=== PATIENT | male | born 1945 | race Caucasian/White ===

== ENCOUNTER 2017-10-28 16:13 | Emergency (ER) | payer OTHER, MEDICARE ==
[2017-10-28] MEDS ORDERED: ASPIRIN 81 MG CHEWABLE TAB PO ONE (17:16)
--- NOTE | 2017-10-28 17:16 | CPEKG ---
Heart Rate: 85 RR Interval: 706 P-R Interval: 164 QRSD Interval: 84 QT Interval: 340 QTC Interval: 405 P [place]ar: 17 QRS [place]ivar: -22 T Wave Bolivar: 17 EKG Severity - OTHERWISE NORMAL ECG - EKG Impression: SINUS RHYTHM EKG Impression: BORDERLINE LEFT AXIS DEVIATION EKG Impression: Otherwise normal EKG Electronically Signed By: Raghavendra Catherine 30-Oct-2017 08:44:08
[2017-10-28 17:55] LABS: PLATELET COUNT 169 10^3/uL (150-400)
[2017-10-28 17:58] LABS: INR 1.21 (0.83-1.16)
[2017-10-28 18:42] VITALS: BP 144/94
--- NOTE | 2017-10-28 18:56 | EDPHY ---
H & P Time Seen by Provider: 10/28/17 16:53 HPI/ROS: CHIEF COMPLAINT: Right shoulder pain HISTORY OF PRESENT ILLNESS: Patient states he has been a little bit ill since . He states"I thought I had a cold". He felt some subtle cough and congestion. Also indigestion increased gassiness. Since that time he changes diet which helped with the indigestion sensation. He also increases fluids which helped his constipation. He states Sunday he noticed right shoulder pain which he describes as severe and generalized to the shoulder. He tried heating pads which made it worse. He also felt a little feverish but had no documented elevated temperature. He states the shortness of breath is the same since and seems worse with activity. Also around the time of onset of the symptoms he had some dizziness that lasted for 2-3 weeks but is better now. Denies chest pain other than when he coughs it hurts a little bit. He has had some sweatiness. He denies nausea or vomiting. He denies abdominal pain. REVIEW OF SYSTEMS: Constitutional: No fever, no chills. Eyes: No discharge. ENT: No sore throat. Cardiovascular: No chest pain, no palpitations. Respiratory: Per HPI Gastrointestinal: No abdominal pain, no vomiting. Genitourinary: No dysuria. Musculoskeletal: No back pain. Right shoulder pain. Skin: No rashes. Neurological: No headache. General Appearance: Alert, no distress. Eyes: Pupils equal and round no pallor or injection. ENT, Mouth: Mucous membranes moist. Respiratory: There are no retractions, lungs are clear to auscultation. Cardiovascular: Regular rate and rhythm. No edema. Gastrointestinal: Abdomen is soft and nontender, no masses, bowel sounds normal. Neurological: Awake and alert, normal distal strength sensation and movement all 4 extremities. Skin: Warm and dry, no rashes. Musculoskeletal: Neck is supple nontender. Some general tenderness to palpation to the right shoulder. No skin lesions noted. Distal intact. Extremities are symmetrical, full range of motion, no edema. Psychiatric: Patient is oriented X 3, there is no agitation. Medical/surgical history: Neuroendocrine tumor of the colon. Hypertension. History of DVT, PE. Treated with anticoagulation no longer on anticoagulation. Prostate issues, kidney stone, surgeries for colon cancer, cataracts, retinal detachment. Social history: Nonsmoker, no drugs. Smoking Status: Never smoked Constitutional: Initial Vital Signs Temperature (C) 37.1 C 10/28/17 16:24 Heart Rate 88 10/28/17 16:24 Respiratory Rate 16 10/28/17 16:24 Blood Pressure 167/90 H 10/28/17 16:24 O2 Sat (%) 96 10/28/17 16:24 O2 Delivery Mode Room Air Allergies/Adverse Reactions: No Known Allergies Allergy (Verified 10/28/17 16:21) Home Medications: Medication Instructions Recorded Allopurinol [Allopurinol 300 MG 300 mg PO DAILY 12/29/12 (RX)] Aspirin [Aspirin 81mg (OTC)] 81 mg PO DAILY 12/29/12 Atrovastatin 40mg 12/29/12 FENOFIBRATE 160 mg PO 12/29/12 Finasteride 5 mg PO 12/29/12 Losartan Potassium [Cozaar] 100 mg PO 12/29/12 Tamsulosin HCl [Flomax 0.4 MG (RX)] 0.4 mg PO DAILY8 12/29/12 FOLIC ACID 10/28/17 Fish Oil 1,000 mg Softgel 10/28/17 Medical Decision Making - Diagnostics Imaging Results: Imaging Impressions Chest X-Ray 10/28/17 17:18 Impression: Query airways disease with no acute cardiopulmonary abnormality identified. Imaging: I viewed and interpreted images myself ED Course/Re-evaluation: EKG performed for shortness of breath. EKG shows normal sinus rhythm, normal intervals, normal rate. Borderline left axis deviation. No acute ST T wave changes. Impression borderline left axis deviation otherwise normal EKG. See trace master. Differential Diagnosis: Differential diagnosis includes but is not limited to acute coronary syndrome, pulmonary embolism, pneumonia, congestive heart failure, musculoskeletal shoulder pain. After evaluation no evidence of cardiopulmonary cause of his symptoms. Likely mild upper respiratory infection or early COPD but no hypoxia , wheezes, infiltrates or elevated D-dimer to suggest pulmonary embolism. EKG and troponin within normal limits. Suspect shoulder pain is musculoskeletal in origin and recommended close follow-up with Dr. Chavarria this week. Also suggested follow-up with orthopedist after seeing Dr. Chavarria if indicated. Discussed return precautions in detail. Stable for discharge. - Data Points Laboratory Results: Laboratory Results 10/28/17 17:32 10/28/17 17:32 10/28/17 10/28/17 10/28/17 17:40 17:38 17:32 WBC RBC Hgb POC Hgb 14.6 gm/dL gm/dL (13.7-17.5) Hct POC Hct 43 % % (40-51) MCV MCH MCHC RDW Plt Count MPV Neut % (Auto) Lymph % (Auto) Reynolds % (Auto) Eos % (Auto) Baso % (Auto) Nucleat RBC Rel Count Absolute Neuts (auto) Absolute Lymphs (auto) Absolute Monos (auto) Absolute Eos (auto) Absolute Basos (auto) Absolute Nucleated RBC Immature Gran % Immature Gran # PT INR APTT D-Dimer POC Sodium 138 mEq/L mEq/L (135-145) Sodium 138 mEq/L mEq/L (135-145) POC Potassium 4.0 mEq/L mEq/L (3.3-5.0) Potassium 4.1 mEq/L mEq/L (3.3-5.0) POC Chloride 105 mEq/L mEq/L (97-110) Chloride 106 mEq/L mEq/L (97-110) Carbon Dioxide 20 mEq/l L mEq/l (22-31) Anion Gap 12 mEq/L mEq/L (8-16) POC BUN 21 mg/dL mg/dL (7-23) BUN 19 mg/dL mg/dL (7-23) Creatinine 1.0 mg/dL mg/dL (0.7-1.3) POC Creatinine 1.0 mg/dL mg/dL (0.7-1.3) Estimated GFR > 60 Glucose 97 mg/dL mg/dL (70-100) POC Glucose 103 mg/dL H mg/dL (70-100) Calcium 9.4 mg/dL mg/dL (8.5-10.4) Total Bilirubin 0.8 mg/dL mg/dL (0.1-1.4) Conjugated Bilirubin 0.5 mg/dL mg/dL (0.0-0.5) Unconjugated Bilirubin 0.3 mg/dL mg/dL (0.0-1.1) AST 47 IU/L IU/L (17-59) ALT 61 IU/L IU/L (21-72) Alkaline Phosphatase 54 IU/L IU/L (38-126) POC Troponin I 0.00 ng/mL ng/mL (0.00-0.08) NT-Pro-B Natriuret Pep 103 pg/mL pg/mL (0-125) Total Protein 6.3 g/dL g/dL (6.3-8.2) Albumin 3.6 g/dL g/dL (3.5-5.0) 10/28/17 10/28/17 17:32 17:32 WBC 5.59 10^3/uL 10^3/uL (3.80-9.50) RBC 4.42 10^6/uL 10^6/uL (4.40-6.38) Hgb 14.3 g/dL g/dL (13.7-17.5) POC Hgb Hct 42.4 % % (40.0-51.0) POC Hct MCV 95.9 fL fL (81.5-99.8) MCH 32.4 pg pg (27.9-34.1) MCHC 33.7 g/dL g/dL (32.4-36.7) RDW 14.4 % % (11.5-15.2) Plt Count 169 10^3/uL 10^3/uL (150-400) MPV 8.9 fL fL (8.7-11.7) Neut % (Auto) 74.4 % H % (39.3-74.2) Lymph % (Auto) 14.5 % L % (15.0-45.0) Reynolds % (Auto) 9.3 % % (4.5-13.0) Eos % (Auto) 0.5 % L % (0.6-7.6) Baso % (Auto) 0.4 % % (0.3-1.7) Nucleat RBC Rel Count 0.0 % % (0.0-0.2) Absolute Neuts (auto) 4.16 10^3/uL 10^3/uL (1.70-6.50) Absolute Lymphs (auto) 0.81 10^3/uL L 10^3/uL (1.00-3.00) Absolute Monos (auto) 0.52 10^3/uL 10^3/uL (0.30-0.80) Absolute Eos (auto) 0.03 10^3/uL 10^3/uL (0.03-0.40) Absolute Basos (auto) 0.02 10^3/uL 10^3/uL (0.02-0.10) Absolute Nucleated RBC 0.00 10^3/uL 10^3/uL (0-0.01) Immature Gran % 0.9 % % (0.0-1.1) Immature Gran # 0.05 10^3/uL 10^3/uL (0.00-0.10) PT Pending INR 1.21 H (0.83-1.16) APTT 30.8 SEC SEC (23.0-38.0) D-Dimer < 0.27 ug/mLFEU ug/mLFEU (0.00-0.50) POC Sodium Sodium POC Potassium Potassium POC Chloride Chloride Carbon Dioxide Anion Gap POC BUN BUN Creatinine POC Creatinine Estimated GFR Glucose POC Glucose Calcium Total Bilirubin Conjugated Bilirubin Unconjugated Bilirubin AST ALT Alkaline Phosphatase POC Troponin I NT-Pro-B Natriuret Pep Total Protein Albumin Medications Given: Discontinued Medications Aspirin (Aspirin) 324 mg PO EDNOW ONE Stop: 10/28/17 17:17 Last Admin: 10/28/17 17:25 Dose: 243 mg Point of Care Test Results: Chemistry 10/28/17 10/28/17 17:40 17:38 POC Sodium 138 mEq/L mEq/L (135-145) POC Potassium 4.0 mEq/L mEq/L (3.3-5.0) POC Chloride 105 mEq/L mEq/L (97-110) POC BUN 21 mg/dL mg/dL (7-23) POC Creatinine 1.0 mg/dL mg/dL (0.7-1.3) POC Glucose 103 mg/dL H mg/dL (70-100) POC Troponin I 0.00 ng/mL ng/mL (0.00-0.08) ISTAT H&H 10/28/17 17:38 POC Hgb 14.6 gm/dL gm/dL (13.7-17.5) POC Hct 43 % % (40-51) Departure - Departure Disposition: Home, Routine, Self-Care Clinical Impression: Shoulder pain, right Condition: Good Instructions: Shoulder Pain (ED) Additional Instructions: Try Tylenol, ibuprofen, ice for shoulder pain. See your primary care physician in the next 1-3 days without fail. Return to the emergency department if you' re shortness of breath worsens or if he developed chest pain or other new or concerning symptoms. Referrals: Sandeep Chavarria MD [Primary Care Provider] - As per Instructions
[2017-10-28 20:13] LABS: PROTIME(PATIENT) 15.5 SEC (12.0-15.0)
== END 2017-10-28 19:02 | disposition home or self-care (01) ==
DX: M25.511 Pain in right shoulder (principal); I10 Essential (primary) hypertension; Z79.82 Long term (current) use of aspirin; Z85.038 Personal history of other malignant neoplasm of large intestine
CPT/HCPCS: 82435-PO; 82565-PO; 82947-PO; 84132-PO; 84295-PO; 84484-PO; 84520-PO; 85014-PO

== ENCOUNTER 2018-01-21 19:34 | Emergency (ER) | payer OTHER, MEDICARE ==
[2018-01-21] MEDS ORDERED: IPRATROPIUM/ALBUTEROL 3 ML DEYVIAL IH ONE (21:32)
--- NOTE | 2018-01-21 21:33 | EDPHY ---
H & P Time Seen by Provider: 01/21/18 21:20 HPI/ROS: Chief complaint. Shortness of breath HPI. Patient is a 72-year-old male presents with shortness of breath for 4 months. He has tried antibiotics. He also has some abdominal pain for 4 months and some diarrhea. He has had some cough. Now he has an upper respiratory infection. He complains shortness of breath with exertion climbing stairs in her home. He does not have chest pain. Maybe he has had some fever. No unusual leg pain or swelling. ROS Constitutional. Possible fever Eyes. no problems with vision ENT. no sore throat, no nasal drainage Cardiovascular. no chest pain Respiratory. Shortness of breath with exertion and cough Abdominal. Some epigastric abdominal pain for 4 months . no problems urinating MS. no calf pain/swelling, no neck/back pain, no joint pain Skin. no rash Lymph. no swollen glands Neuro. no headache, no dizziness, no difficulty with speech Past Medical/Surgical History: Past medical history significant for colon resection, colon cancer, DVT, PE Social History: , nonsmoker, no alcohol Smoking Status: Never smoked Physical Exam: General Appearance: Alert well-developed male mild distress vital signs show temp 37.1 degrees, heart rate 108, blood pressure 151/102 Eyes: Pupils equal and round no pallor or injection. ENT, Mouth: Mucous membranes are moist. Respiratory: There are no retractions, lungs are clear to auscultation. Cardiovascular: Regular rate and rhythm. Gastrointestinal: Abdomen is soft and nontender, no masses, bowel sounds normal. Neurological: Awake and alert, sensory and motor exams grossly normal. Skin: Warm and dry, no rashes. Musculoskeletal: Neck is supple nontender. Extremities symmetrical, full range of motion. Psychiatric: Patient is oriented X 3, there is no agitation. Constitutional: Initial Vital Signs Temperature (C) 37.1 C 01/21/18 19:40 Heart Rate 108 H 01/21/18 19:40 Respiratory Rate 18 01/21/18 19:40 Blood Pressure 151/102 H 01/21/18 19:40 O2 Sat (%) 95 01/21/18 19:40 O2 Delivery Mode Room Air Allergies/Adverse Reactions: No Known Allergies Allergy (Verified 01/21/18 19:44) Home Medications: Medication Instructions Recorded Allopurinol [Allopurinol 300 MG 300 mg PO DAILY 12/29/12 (RX)] Aspirin [Aspirin 81mg (OTC)] 81 mg PO DAILY 12/29/12 Atrovastatin 40mg 12/29/12 FENOFIBRATE 160 mg PO 12/29/12 Finasteride 5 mg PO 12/29/12 Losartan Potassium [Cozaar] 100 mg PO 12/29/12 FOLIC ACID 10/28/17 Fish Oil 1,000 mg Softgel 10/28/17 Medical Decision Making - Diagnostics EKG Interpretation: EKG interpreted by me shows normal sinus rhythm normal interval. Left axis deviation. QRS is otherwise normal there is no significant ST elevation or depression. No arrhythmia. The rate is 79 Imaging Results: Imaging Impressions Chest X-Ray 01/21/18 21:32 Impression: No evidence of acute cardiopulmonary abnormality. Chest/Thorax CTA 01/21/18 22:20 Impression: 1. No evidence of thrombopulmonary embolic disease. 2. No evidence for acute cardiopulmonary abnormality. Results called and discussed with Dr. Christian Crhisty at 01/21/2018 23:13. Chest x-ray interpreted by me is negative Chest CT reviewed by me and discussed with Dr. Bean is normal Procedures: IV normal saline. [facility] ED Course/Re-evaluation: Re-evaluation 11:20 p.m.. Patient and his and I discussed imaging and lab results. We discussed treatment plan. We discussed importance of follow-up. We discussed criteria for return. Patient is stable. They expressed understanding and agreement Differential Diagnosis: I cannot find a cause for the patient's 4 months of shortness of breath. Considered pneumonia, acute coronary syndrome, congestive heart failure, pulmonary embolus. It is possible the patient has COPD her deconditioning. It does appear that he currently has a mild upper respiratory infection. - Data Points Laboratory Results: Laboratory Results 01/21/18 21:39 01/21/18 21:39 01/21/18 01/21/18 01/21/18 22:22 21:39 21:39 WBC RBC Hgb Hct MCV MCH MCHC RDW Plt Count MPV Neut % (Auto) Lymph % (Auto) Andrews % (Auto) Eos % (Auto) Baso % (Auto) Nucleat RBC Rel Count Absolute Neuts (auto) Absolute Lymphs (auto) Absolute Monos (auto) Absolute Eos (auto) Absolute Basos (auto) Absolute Nucleated RBC Immature Gran % Seg Neutrophils % Band Neutrophils % Lymphocytes % Monocytes % Eosinophils % Basophils % Metamyelocytes % Myelocytes % Promyelocytes % Blast Cells % Immature Gran # Absolute Seg Neuts Absolute Band Neuts Absolute Lymphocytes Absolute Monocytes Absolute Eosinophils Absolute Basophils Absolute Metamyelocyte Absolute Myelocytes Absolute Promyelocytes Absolute Plasma Cells Atypical Lymphocytes Absolute Blast Cells Plasma Cells % Smudge Cells Platelet Estimate Polychromasia Hypochromasia Oval Macrocytes Smear Review By D-Dimer 0.71 ug/mLFEU H ug/mLFEU (0.00-0.50) Sodium 138 mEq/L mEq/L (135-145) Potassium 4.6 mEq/L mEq/L (3.3-5.0) Chloride 106 mEq/L mEq/L (97-110) Carbon Dioxide 22 mEq/l mEq/l (22-31) Anion Gap 10 mEq/L mEq/L (8-16) BUN 30 mg/dL H mg/dL (7-23) Creatinine 1.2 mg/dL mg/dL (0.7-1.3) Estimated GFR 60 Glucose 90 mg/dL mg/dL (70-100) Calcium 9.4 mg/dL mg/dL (8.5-10.4) POC Troponin I 0.01 ng/mL ng/mL (0.00-0.08) NT-Pro-B Natriuret Pep 70 pg/mL pg/mL (0-125) 01/21/18 21:39 WBC 1.48 10^3/uL L 10^3/uL (3.80-9.50) RBC 4.12 10^6/uL L 10^6/uL (4.40-6.38) Hgb 14.2 g/dL g/dL (13.7-17.5) Hct 41.4 % % (40.0-51.0) MCV 100.5 fL H fL (81.5-99.8) MCH 34.5 pg H pg (27.9-34.1) MCHC 34.3 g/dL g/dL (32.4-36.7) RDW 17.1 % H % (11.5-15.2) Plt Count 58 10^3/uL L 10^3/uL (150-400) MPV 10.3 fL fL (8.7-11.7) Neut % (Auto) Not Reported Lymph % (Auto) Not Reported Andrews % (Auto) Not Reported Eos % (Auto) Not Reported Baso % (Auto) Not Reported Nucleat RBC Rel Count Not Reported Absolute Neuts (auto) Not Reported Absolute Lymphs (auto) Not Reported Absolute Monos (auto) Not Reported Absolute Eos (auto) Not Reported Absolute Basos (auto) Not Reported Absolute Nucleated RBC Not Reported Immature Gran % Not Reported Seg Neutrophils % 37.6 % % Band Neutrophils % 2.0 % % Lymphocytes % 44.6 % % Monocytes % 3.0 % % Eosinophils % 0.0 % % Basophils % 0.0 % % Metamyelocytes % 0.0 % % Myelocytes % 4.0 % % Promyelocytes % 1.0 % % Blast Cells % 7.9 % % Immature Gran # Not Reported Absolute Seg Neuts 0.00 10^/uL L 10^/uL (1.70-6.50) Absolute Band Neuts 0.00 10^3/uL 10^3/uL (0.00-0.70) Absolute Lymphocytes 0.00 10^3/uL L 10^3/uL (1.00-3.00) Absolute Monocytes 0.00 10^3/uL L 10^3/uL (0.30-0.80) Absolute Eosinophils 0.00 10^3/uL L 10^3/uL (0.03-0.40) Absolute Basophils 0.00 10^3/uL L 10^3/uL (0.02-0.10) Absolute Metamyelocyte 0.00 10^3/mL 10^3/mL (0.00-0.00) Absolute Myelocytes 0.00 10^3/mL 10^3/mL (0.00-0.00) Absolute Promyelocytes 0.00 10^3/uL 10^3/uL (0.00-0.00) Absolute Plasma Cells 0.00 10^3/uL 10^3/uL (0.00-0.00) Atypical Lymphocytes 2+ H Absolute Blast Cells 0.00 10^3/uL 10^3/uL (0.00-0.00) Plasma Cells % 0.0 % % Smudge Cells 2+ H Platelet Estimate DECREASED L (ADEQ) Polychromasia 1+ H Hypochromasia 1+ H Oval Macrocytes 1+ H Smear Review By Pending D-Dimer Sodium Potassium Chloride Carbon Dioxide Anion Gap BUN Creatinine Estimated GFR Glucose Calcium POC Troponin I NT-Pro-B Natriuret Pep Medications Given: Discontinued Medications Albuterol/Ipratropium (Duoneb) 3 ml IH EDNOW ONE Stop: 01/21/18 21:33 Last Admin: 01/21/18 22:18 Dose: 3 ml Sodium Chloride (Ns) 1,000 mls @ 0 mls/hr IV EDNOW ONE; Wide Open PRN Reason: Protocol Stop: 01/21/18 22:23 Last Admin: 01/21/18 23:00 Dose: 1,000 mls Point of Care Test Results: Chemistry 01/21/18 22:22 POC Troponin I 0.01 ng/mL ng/mL (0.00-0.08) Departure - Departure Disposition: Home, Routine, Self-Care Clinical Impression: Shortness of breath Condition: Good Instructions: Shortness of Breath (ED) Additional Instructions: Continue regular medications. Return for worsening symptoms. Follow-up with Dr. Chavarria for further evaluation Referrals: Sandeep Chavarria MD [Primary Care Provider] - 2-3 days, call for appt.
[2018-01-21 21:49] LABS: PLATELET COUNT 58 10^3/uL (150-400)
--- NOTE | 2018-01-21 22:11 | CPEKG ---
Test Reason : OPEN Blood Pressure : / mmHG Vent. Rate : 079 BPM Atrial Rate : 079 BPM P-R Int : 159 ms QRS Dur : 081 ms QT Int : 361 ms P-R-T Axes : 023 -26 051 degrees QTc Int : 414 ms Sinus rhythm Borderline left axis deviation Confirmed by Sahra Winters ([id number]) on 01/21/2018 10:10:46 PM Referred By: Confirmed By:Sahra Winters
[2018-01-21] MEDS ORDERED: NS 1,000 ML IV ONE (22:22)
[2018-01-21] MEDS ORDERED: IOPAMIDOL (ISOVUE 370) 100 ML BTL IV ONE (22:22)
[2018-01-21 23:39] VITALS: BP 152/102
== END 2018-01-21 23:38 | disposition home or self-care (01) ==
DX: R06.02 Shortness of breath (principal); E86.9 Volume depletion, unspecified; Z85.038 Personal history of other malignant neoplasm of large intestine; Z86.711 Personal history of pulmonary embolism
CPT/HCPCS: 71046; 71275; 93005; 96360; 99285; Q9967; 84484-PO

== ENCOUNTER 2018-02-05 14:55 | Inpatient (IN) | payer OTHER, MEDICARE ==
[2018-02-05] MEDS ORDERED: ONDANSETRON 4 MG/2 ML VIAL IVP PRN (16:12)
[2018-02-05] MEDS ORDERED: ONDANSETRON DISINTEGRATING 4 MG TAB PO PRN (16:12)
[2018-02-05] MEDS ORDERED: ACETAMINOPHEN 325 MG TAB PO PRN (16:12)
--- NOTE | 2018-02-05 16:21 | PDGENHP ---
History and Physical - Chief Complaint SOB - History of Present Illness 72 yo male with h/o neuroendocrine tumor diagnosed 6 years ago with positive lymph nodes and more recent diagnosis of ALL based bone marrow biopsy done one week ago, presents for direct admission from [facility] with SOB, weakness and possible lingular pneumonia seen on CT at [facility]. His SOB started about 4 months ago. He noticed this going up the stairs. He did the [place] this summer, but took a long time to recover. He took a course of antibiotics in October and then again in November (Azithromycin, then Augmentin). He continues to feel SOB and also endorses cough, which is productive of bloody sputum. He reports bloody drainage from his sinuses as well. He denies fevers, but reports night sweats and chills. He denies orthopnea, PND or LE edema. He denies chest pressure, but gets an ache in his chest after coughing. He was evaluated in the ED 2 weeks ago and due to low platelets and low wbc's, a BM biopsy was pursued, which was positive for ALL. He saw his oncologist, Dr. Livingston, at [facility] today and a CT scan was performed. He is admitted to the hospital for treatment of possible pneumonia and further evaluation of his shortness of breath. History Information - Allergies/Home Medication List Allergies/Adverse Reactions: No Known Allergies Allergy (Verified 01/21/18 19:44) Home Medications: Allopurinol [Allopurinol 300 MG (RX)] 300 mg PO DAILY@02/05/18 [Last Taken ] Aspirin [Aspirin 81mg (*)] 81 mg PO DAILY@02/05/18 [Last Taken 02/04/18] Atorvastatin Calcium [Lipitor 40 mg (*)] 40 mg PO DAILY@02/05/18 [Last Taken 02/04/18] Cholecalciferol Vit D3 [Vitamin D3 2000 units tab (OTC)] 2,000 units PO DAILY@ 02/05/18 [Last Taken 02/04/18] Fenofibrate Nanocrystallized [Triglide] 160 mg PO DAILY@02/05/18 [Last Taken 02/04/18] Finasteride [Proscar 5 MG (*)] 5 mg PO DAILY@02/05/18 [Last Taken 02/04/18] Folic Acid [Folic Acid 1 MG (*)] 1 mg PO DAILY@18 02/05/18 [Last Taken 02/04/18] Losartan Potassium 100 mg PO DAILY@02/05/18 [Last Taken 02/04/18] Multivitamins [Multivitamin (*)] 1 each PO DAILY@02/05/18 [Last Taken ] [place]-3 Fatty Acids [Fish Oil 1000 mg (*)] 1,000 mg PO DAILY@02/05/18 [Last Taken 02/04/18] Tamsulosin HCl [Flomax 0.4 MG (*)] 0.4 mg PO DAILY@02/05/18 [Last Taken 02/04] I have personally reviewed and updated: family history, medical history, social history, surgical history - Past Medical History hypertension Additional medical history: H/O neuroendocrine tumor. ALL - diagnosed 01/2018 by BM biopsy - Family History Positive for: non-pertinent - Social History Smoking Status: Never smoked Alcohol Use: None Drug Use: None Additional social history: Lives independently with in [place]. Review of Systems Review of Systems: ROS: 10pt was reviewed & negative except for what was stated in HPI & below Physical Exam Physical Exam: Constitutional: no apparent distress Eyes: PERRL Ears, Nose, Mouth, Throat: moist mucous membranes Cardiovascular: regular rate and rhythym, no murmur, rub, or gallop Respiratory: no respiratory distress, clear to auscultation Gastrointestinal: normoactive bowel sounds, soft, non-tender abdomen Skin: warm Musculoskeletal: full muscle strength Neurologic: AAOx3 Psychiatric: interacting appropriately Lab Data & Imaging Review Visualized and Interpreted EKG results: Yes EKG Interpretation: Positive for: normal sinsus rhythm Assessment & Plan Assessment: Dyspnea presumed 2/2 PNA - I am unable to review CT done at [facility], but it apparently showed a lingular infiltrate. Given his risk for thromboembolic disease, will obtain CTA now to r/o PE (neg). Given 2 rounds of atbx this summer and neutropenic status with sweats, obtain BCx's, sputum culture and treat for presumed PNA with Cefepime. Will also check legionella and pneumococcal antigens. In addition, trend trop and check EKG and echo. ALL - new dx by BM biopsy 1 week ago, followed by Dr. Livingston. Oncology to see tomorrow regarding tx plans once infectious issues managed. Neutropenia - ANC ~500, 2/2 ALL. He is currently afebrile, but night sweats and chills concerning. BCx's and Cefepime as above. Neutropenic precautions. Follow counts. Thrombocytopenia - as above 2/2 ALL. No active bleeding. No indication for transfusion currently. Follow. Azotemia - suspect pre-renal, gentle NS overnight Full code DVT PPLX - High risk, but defer Lovenox given low plts, SCD's for now Dispo - inpt, anticipate >48 hrs hospitalization for ongoing management of dyspnea, PNA, ALL. PT/OT evals requested.
[2018-02-05] MEDS ORDERED: IOPAMIDOL (ISOVUE 370) 100 ML BTL IV ONE (16:49)
[2018-02-05] MEDS: CEFEPIME HCL 2 GM in NS 100 ML IV SCH (17:48)
[2018-02-05] MEDS ORDERED: FINASTERIDE 5 MG TAB PO SCH (18:00)
[2018-02-05] MEDS ORDERED: OMEGA-3 FATTY ACIDS 1,000 MG CAP PO SCH (18:00)
[2018-02-05] MEDS ORDERED: ALLOPURINOL 300 MG TAB PO SCH (18:00)
[2018-02-05] MEDS ORDERED: ASPIRIN 81 MG CHEWABLE TAB PO SCH (18:00)
[2018-02-05] MEDS ORDERED: TAMSULOSIN HCL 0.4 MG CAP PO SCH (18:00)
[2018-02-05] MEDS ORDERED: MULTIVITAMINS 1 EACH TAB PO SCH (18:00)
[2018-02-05] MEDS ORDERED: ATORVASTATIN CALCIUM 40 MG TAB PO SCH (18:00)
[2018-02-05] MEDS ORDERED: LOSARTAN POTASSIUM 50 MG TAB PO SCH (18:00)
[2018-02-05] MEDS ORDERED: FOLIC ACID 1 MG TAB PO SCH (18:00)
[2018-02-05] MEDS ORDERED: CHOLECALCIFEROL VIT D3 2,000 UNITS TAB/CAP PO SCH (18:00)
[2018-02-05] MEDS ORDERED: FENOFIBRATE 145 MG TAB PO SCH (18:00)
[2018-02-05] MEDS ORDERED: NS 1,000 ML IV SCH (19:00)
[2018-02-06] MEDS: CEFEPIME HCL 2 GM in NS 100 ML IV SCH ×2 (00:01→09:36)
[2018-02-06 04:52] LABS: PLATELET COUNT 23 10^3/uL (150-400)
[2018-02-06] MEDS: CALCIUM CARBONATE 500 MG CHEWABLE TAB PO PRN ×2 (06:44→13:20)
[2018-02-06 08:01] VITALS: BP 136/72
[2018-02-06] MEDS ORDERED: RANITIDINE SYRUP 15 MG/1 ML UDSYR PO SCH (09:00)
[2018-02-06] MEDS ORDERED: ENOXAPARIN 40 MG/0.4 ML SYR SC SCH (09:00)
--- NOTE | 2018-02-06 09:16 | ASMTCMCOM ---
CM Note CM Note Notes: Pt is a 72 y/o man admitted for shortness of breath. Pt with a hx of neuroendocrine tumor dx 6 yrs ago with positive lymph nodes and more recent dx of all based bone marrow biopsy done 1 week ago. Therapies have been ordered and awaiting recommendations. Needs are TBD at this time. Pt lives w/ his independently. CM to follow. Plan: TBD Date Signed: 02/06/2018 09:15 AM Electronically Signed By:AJAY Noland
[2018-02-06] MEDS ORDERED: FAMOTIDINE 20 MG TAB PO SCH (10:30)
--- NOTE | 2018-02-06 12:17 | PDCONSULT ---
Nurse Practitioner Home Assessments Note: Hematology/oncology consultation note Reason for consultation: newly diagnosed acute lymphoblastic leukemia Requesting provider: Dr. Valerio History of present illness: This is a very pleasant 72-year-old male with history of a neuroendocrine tumor who most recently was diagnosed with in Q lymphoblastic leukemia. He states that over the last few months he has had worsening fatigue alongside shortness of breath. He was treated briefly with antibiotics and shortness of breath did not improve. He was seen a few weeks ago for leukopenia and thrombocytopenia. He was seen in the clinic here in [place] by Dr. Livingston on 01/25/2018. A bone marrow biopsy at that time demonstrated a hypercellular marrow with blasts occupying 76% of the marrow. He had leukopenia with ANC of 0.58 alongside thrombocytopenia platelets of 44. He had 2% circulating blasts. Fish panel revealed loss of ETV6, gain of ABL1, Gain BCR, gain of MLL, and gain of chromosome 6. His BCR/ABL1, ETV6/RUNX1, and MLL rearrangmeent were negative. He was admitted yesterday for possible induction. He also was noted to have a left upper lobe pneumonia. He was started on antibiotic with cefepime. His breathing has slightly improved. Past medical history History neuro endocrine tumor 6 years ago. Hypertension Family history No significant history of cancers. Social history He lives with his here in [facility]. No smoking or alcohol. ROS: 12 point review of systems was obtained and was otherwise negative. Medications Reviewed in the electronic medical record system. Physical examination Temp Pulse Resp BP Pulse Ox 36.6 C 58 L 14 136/72 H 98 02/06/18 07:59 02/06/18 07:59 02/06/18 07:59 02/06/18 07:59 02/06/18 07:59 O2 (L/minute) 2 General: Pleasant-appearing male appears in no acute distress, conversant, obese HEENT: Opiates clear extraocular movements are intact pupils equal round reactive to light Cardiovascular: Regular rhythm no murmurs gallops rubs Pulmonary: Clear to auscultation bilaterally Abdomen: Soft nontender nondistended bowel sounds are present Extremities: No cyanosis clubbing or edema Skin: No skin lesions Neuro: Moving all extremities equally WBC 1.55 10^3/uL (3.80-9.50) L 02/06/18 04:01 RBC 3.67 10^6/uL (4.40-6.38) L 02/06/18 04:01 Hgb 12.6 g/dL (13.7-17.5) L 02/06/18 04:01 Hct 36.8 % (40.0-51.0) L 02/06/18 04:01 MCV 100.3 fL (81.5-99.8) H 02/06/18 04:01 MCH 34.3 pg (27.9-34.1) H 02/06/18 04:01 MCHC 34.2 g/dL (32.4-36.7) 02/06/18 04:01 RDW 18.1 % (11.5-15.2) H 02/06/18 04:01 Plt Count 23 10^3/uL (150-400) L* 02/06/18 04:01 MPV 12.7 fL (8.7-11.7) H 02/06/18 04:01 Neut % (Auto) Not Reported 02/06/18 04:01 Lymph % (Auto) Not Reported 02/06/18 04:01 [place] % (Auto) Not Reported 02/06/18 04:01 Eos % (Auto) Not Reported 02/06/18 04:01 Baso % (Auto) Not Reported 02/06/18 04:01 Nucleat RBC Rel Count Not Reported 02/06/18 04:01 Absolute Neuts (auto) Not Reported 02/06/18 04:01 Absolute Lymphs (auto) Not Reported 02/06/18 04:01 Absolute Monos (auto) Not Reported 02/06/18 04:01 Absolute Eos (auto) Not Reported 02/06/18 04:01 Absolute Basos (auto) Not Reported 02/06/18 04:01 Absolute Nucleated RBC Not Reported 02/06/18 04:01 Immature Gran % Not Reported 02/06/18 04:01 Seg Neutrophils % 40.8 % 02/06/18 04:01 Band Neutrophils % 0.0 % 02/06/18 04:01 Lymphocytes % 46.9 % 02/06/18 04:01 Monocytes % 12.3 % 02/06/18 04:01 Eosinophils % 0.0 % 02/06/18 04:01 Basophils % 0.0 % 02/06/18 04:01 Metamyelocytes % 0.0 % 02/06/18 04:01 Myelocytes % 0.0 % 02/06/18 04:01 Promyelocytes % 0.0 % 02/06/18 04:01 Blast Cells % 0.0 % 02/06/18 04:01 Immature Gran # Not Reported 02/06/18 04:01 Absolute Seg Neuts 0.63 10^/uL (1.70-6.50) L 02/06/18 04:01 Absolute Band Neuts 0.00 10^3/uL (0.00-0.70) 02/06/18 04:01 Absolute Lymphocytes 0.73 10^3/uL (1.00-3.00) L 02/06/18 04:01 Absolute Monocytes 0.19 10^3/uL (0.30-0.80) L 02/06/18 04:01 Absolute Eosinophils 0.00 10^3/uL (0.03-0.40) L 02/06/18 04:01 Absolute Basophils 0.00 10^3/uL (0.02-0.10) L 02/06/18 04:01 Absolute Metamyelocyte 0.00 10^3/mL (0.00-0.00) 02/06/18 04:01 Absolute Myelocytes 0.00 10^3/mL (0.00-0.00) 02/06/18 04:01 Absolute Promyelocytes 0.00 10^3/uL (0.00-0.00) 02/06/18 04:01 Absolute Plasma Cells 0.00 10^3/uL (0.00-0.00) 02/06/18 04:01 Nucleated RBCs 11.2 /100 WBC (0-0) H 02/06/18 04:01 Atypical Lymphocytes 2+ H 02/06/18 04:01 Absolute Blast Cells 0.00 10^3/uL (0.00-0.00) 02/06/18 04:01 Plasma Cells % 0.0 % 02/06/18 04:01 Toxic Granulation PRESENT H 02/06/18 04:01 Platelet Estimate DECREASED (ADEQ) L 02/06/18 04:01 Polychromasia 1+ H 02/06/18 04:01 Oval Macrocytes 2+ H 02/06/18 04:01 Echinocytes 1+ H 02/06/18 04:01 Smear Review By Amado SANCHEZ MD 02/06/18 04:01 Sodium 136 mEq/L (135-145) 02/06/18 04:01 Potassium 4.4 mEq/L (3.3-5.0) 02/06/18 04:01 Chloride 109 mEq/L (97-110) 02/06/18 04:01 Carbon Dioxide 19 mEq/l (22-31) L 02/06/18 04:01 Anion Gap 8 mEq/L (8-16) 02/06/18 04:01 BUN 26 mg/dL (7-23) H 02/06/18 04:01 Creatinine 0.9 mg/dL (0.7-1.3) 02/06/18 04:01 Estimated GFR > 60 02/06/18 04:01 Glucose 85 mg/dL (70-100) 02/06/18 04:01 Calcium 8.6 mg/dL (8.5-10.4) 02/06/18 04:01 Total Bilirubin 0.6 mg/dL (0.1-1.4) 02/06/18 04:01 AST 87 IU/L (17-59) H 02/06/18 04:01 ALT 34 IU/L (21-72) 02/06/18 04:01 Alkaline Phosphatase 93 IU/L (38-126) 02/06/18 04:01 Troponin I < 0.012 ng/mL (0.000-0.034) 02/05/18 23:47 Total Protein 5.4 g/dL (6.3-8.2) L 02/06/18 04:01 Albumin 2.8 g/dL (3.5-5.0) L 02/06/18 04:01 Ur Strep pneumoniae Ag Cancelled 02/05/18 18:35 Assessment and plan: This is a very pleasant 72-year-old male who was otherwise healthy with a new diagnosis of acute lymphoblastic leukemia. 1. Acute lymphoblastic leukemia, [place] chromosome negative, CD 20 positive, CD 22 positive: I had an extensive discussion with Fidel and his today with regards to his new diagnosis of ALL. We discussed that we the ideal chemotherapy regimen would be multi agent with my recommendation being rituximab with hyper CVAD. We reviewed the toxicity profile alongside infectious disease complications related to induction chemotherapy. I also discussed that I would recommend induction at a high volume center. I did offer him he had induction here at [facility]. In reviewing his options they have chosen for transfer to a higher level institution. I voiced my support of this. I have discussed his case with Dr. Sevilla at [facility] and will arrange his transfer. 2. Lobar pneumonia: Given his neutropenia, I agree with current coverage with Cefepime. 3. Neutropenia/Thrombocytopenia: Secondary to #1. Will transfuse Hgb>7, Plt>20. All questions were answered. They voiced understanding of the plan.
--- NOTE | 2018-02-06 14:13 | GDS ---
DISCHARGE DIAGNOSES: 1. Acute lymphoblastic leukemia. 2. History of neuroendocrine tumor. DISCHARGE DIAGNOSES: 1. History of neuroendocrine tumor. 2. Recent diagnosis of acute lymphoblastic leukemia. 3. Dyspnea. 4. Neutropenia. 5. Thrombocytopenia. HISTORY OF PRESENT ILLNESS: A 72-year-old male with history of neuroendocrine tumor diagnosed 6 years ago. More recently, diagnosed with ALL based on bone marrow biopsy 1 week ago. Presented for direct admission from [facility] with shortness of breath, weakness, and lingular pneumonia. Shortness of breath started 4 months ago, especially when going up the stairs. He took a course of antibiotics in October and then again in November (azithromycin, then Augmentin). He continued to feel short of breath and endorses cough which is productive of bloody sputum. HOSPITAL COURSE BY PROBLEM: 1. Acute lymphoblastic leukemia: Dr. Womack met with patient and recommended rituximab with hyper CVAD. They reviewed the toxicity profile which is very high along with infectious disease complications. Thus, are all in agreement to transfer to [facility]. Case was discussed with Dr. Sevilla and transfer will be arranged today. 2. Pneumonia: Cover with cefepime given neutropenia. 3. Neutropenia/thrombocytopenia, chemo induced. Transfusion goals: Hemoglobin greater than 7, platelets greater than 20. #Disp: stable for transfer to [facility]. Patient warrants inpatient admission and discharge/transfer was unexpected, but warranted for a higher level care center. MEDICATIONS: See medication reconciliation. PHYSICAL EXAMINATION: VITAL SIGNS: Today, temperature 36.6, blood pressure 136 /72, heart rate in the 50s to 70s, respirations 14, 98% on 2 L. GENERAL: Tired , falls asleep during interview, but responses are appropriate. HEENT: PERRLA. Moist mucous membranes. Some mild bleeding from his nares. CV: Regular rhythm. LUNGS: Clear. ABDOMEN: Soft, nontender, nondistended. Positive bowel sounds. : No [place]. MUSCULOSKELETAL: 5/5 upper and lower extremity strength. NEURO: 2 through 12 intact. PSYCH: Alert and oriented x3. Time spent on discharge greater than 30 minutes coordinating with Case Management, Dr. Womack, to transfer to [facility]. /[id number]/MODL MTDD
--- NOTE | 2018-02-06 14:33 | ASMTCMCOM ---
CM Note CM Note Notes: Per MD Womack, patient is to transfer to [facility]. CM initiated call to access center and they are to call once bed availability confirmed. Dr. Valerio filled out emtala form. Images copied to CD. CM availble should other needs arise. Plan: DC to [facility] via [facility] when bed available. Date Signed: 02/06/2018 02:32 PM Electronically Signed By:Taryn Nolasco RN
--- NOTE | 2018-02-06 14:42 | ECHO ---
[email or web address] [address] [address] Main: [phone] Fax: Transthoracic Echocardiogram Name: DANTE VIEIRA MR#: [id number] Study Date: 02/06/2018 Study Time: 07:47 AM Date of : 1945 Age: 72 year(s) Height: ( ) Weight: ( ) BSA: Gender: Male Examination: Echo Indication: Cardiac: dyspnea Image Quality: Adequate Contrast: Requested by: Eulalia Negron BP: / Heart Rate: Rhythm: Indication: Cardiac: dyspnea Procedure Staff Inclusion Intern: Mariya Yu [facility] Reading Physician: Juan Joy MD Requesting Provider: Conclusions: Normal size left ventricle. Mild concentric LV hypertrophy. EF is 57 %. No regional wall motion abnormality. Trivial to mild mitral regurgitation. Trivial to mild aortic valve regurgitation. There is no significant tricuspid valve regurgitation. Pulmonary artery pressure is not obtained due to inadequate TR jet. Trace anterior pericardial effusion versus fat pad. No prior study for comparison. Measurements: Chambers Valvular Assessment AV/MV Valvular Assessment TV/PV Normal Normal Normal Name Value Range Name Value Range Name Value Range Ao Lianne (MM): 3.8 cm (2.2 cm-3.7 AV Vmax: 1.09 m/s (1 m/s-1.7 PV Vmax: 0.71 m/s (0.6 m/s-0.9 cm) m/s) m/s) IVSd (2D): 1.2 cm (0.6 cm-1.1 AV maxP mmHg ( - ) PV PGmax: 2 mmHg ( - ) cm) LVOT Vmax: 0.87 m/s (0.7 m/s-1.1 LVDd (2D): 4.2 cm (4.2 cm-5.9 m/s) cm) LU (Vmax): 3.3 cm2 ( - ) LVDs (2D): 2.8 cm (2.1 cm-4 MV E Vmax: 0.56 m/s ( - ) cm) MV A Vmax: 0.74 m/s ( - ) LVPWd (2D): 1.1 cm (0.6 cm-1 MV E/A: 0.76 ( - ) cm) LVOTd 2.3 cm 2.3 cm mm LVEF (BP): 57 % (>=55 %) RVDd(2D): 2.5 cm (1.9 cm-3.8 cmmm) Patient: DANTE VIEIRA Study Date: 02/06/2018 Page 1 of 2 07:47 AM Continued Measurements: Chambers Valvular Assessment AV/MV Name Value Name Value LADs Lon.2 cm MV DecTime: 187 m/s LA Area: 17.4 cm2 MV E/E' Septal: 11.30 LA Volume: 51 ml MV E/E' Lateral: 10.10 TAPSE: 2.7 cm RA Area: 10.6 cm2 Additional Vessels Name Value Ao Ascendin.5 cm Findings: Left Ventricle: Normal size left ventricle. Mild concentric LV hypertrophy. Normal global systolic LV function. EF is 57 %. No regional wall motion abnormality. Normal diastolic LV function. Right Ventricle: Normal size right ventricle. Normal RV function. Left Atrium: The left atrium is normal in size. LA index 23.8ml/m2.. Right Atrium: The right atrium is normal in size. Mitral Valve: The mitral valve is normal in appearance. Trivial to mild mitral regurgitation. No mitral stenosis is present. Aortic Valve: The aortic valve is tri-leaflet and functions normally. Trivial to mild aortic valve regurgitation. No aortic valve stenosis is present. Tricuspid Valve: The tricuspid valve appears normal. There is no significant tricuspid valve regurgitation. Pulmonary artery pressure is not obtained due to inadequate TR jet. Pulmonic Valve: Pulmonary valve not well visualized. There is no pulmonic regurgitation seen. Aorta: Normal size aortic root measuring 3.8 cm. Normal size ascending aorta measuring 3.5 cm. IVC: Normal size and course of the IVC. Pericardium: Trace anterior pericardial effusion versus fat pad. (No Signature Object) Patient: DANTE VIEIRA Study Date: 02/06/2018 Page 2 of 2 07:47 AM [id number]
--- NOTE | 2018-02-07 06:11 | CPEKG ---
Test Reason : OPEN Blood Pressure : / mmHG Vent. Rate : 089 BPM Atrial Rate : 089 BPM P-R Int : 153 ms QRS Dur : 083 ms QT Int : 350 ms P-R-T Axes : 041 -48 064 degrees QTc Int : 426 ms Sinus rhythm Left anterior fascicular block Confirmed by Raghavendra Catherine ([id number]) on 02/07/2018 6:10:58 AM Referred By: Confirmed By:Raghavendra Catherine
--- NOTE | 2018-02-07 11:22 | PDMN ---
Medical Necessity Medical necessity: Pt meets IP criteria per MD & MCG M-282; est los >2 mn for eval/tx of pneumonia w/dyspnea in the setting of acute lymphoblastic leukemia w/ neutropenia & thrombocytopenia; requiring further workup/monitoring, IV abx, Oncology consult, respiratory suppotive care & therapies; hx neuroendocrine tumor; per H&P & order 02/05/18
== END 2018-02-06 15:50 | disposition short-term general hospital (02) | DRG 834 ==
LOC: F1N 15:05 → OBSVTOIN 16:15
PROVIDERS: ADMIT Nurse Practitioner Family; ATTEND Hospitalist
DX: C91.00 Acute lymphoblastic leukemia not having achieved remission (principal); J18.9 Pneumonia, unspecified organism; D70.1 Agranulocytosis secondary to cancer chemotherapy; I10 Essential (primary) hypertension
CPT/HCPCS: 87449-90; 92610-GN; 97161-GP; 97165-GO; 97530-GP; G8978-GP-CI; G8979-GP-CI; G8987-GO-CI; G8988-GO-CI; G8989-GO-CI; G8996-GN-CH; G8997-GN-CH; G8998-GN-CH; J0692; Q9967